=== PATIENT | male | born 1955 | race Caucasian/White ===

== ENCOUNTER → 2017-04-06 | Outpatient (CLI) | payer BC, OTHER ==
[~2017-04-06] VITALS: Ht 172.7 cm; Wt 93.0 kg
[~2017-04-06] MED LIST: AMBIEN 5 MG TABL5 M1 PO; ASPIR 8181 MG PO; BENAZEPRIL HCL10 MG PO; COENZYME Q10100 MG PO; FLOVENT HFA 4444 MCG INH; LIPITOR80 MG PO; OMEGA-31000 M1 PO; UNICOMPLEX M TA1 TA1 PO; VENTOLIN HFA 1818 GM INH; ZETIA10 MG PO
--- NOTE | ~2017-04-06 | CATHLAB ---
[facility] [address] [place] [address] INVASIVE PROCEDURE REPORT Name: JASON VILLAFUERTE ADRIANA [facility] [id number] Admission: 04/06/17 Attend Phys: Wellington Osorio MD Discharge: Date of : 59 Date of Service: 04/06/17 1204 Report #: [id number] THIS REPORT FOR: //name// APPROVED REPORT Patient Details Patient Status: Out-Patient Room #: The patient is a 61 year-old male Event Personnel Wellington Osorio Terminal Computer Operator, Lonnie Bautista RN, Kandi Diehl RN RN, Ksenia Yao Sandifer, David Monitor Procedures Performed Art Access - R femoral artery* Left Heart Cath w/or w/o Coronaries [id number] [facility] [address] Initial Mod Sed Same Phys/QHP Gr5y [id number] Hemostasis with Manual pressure Indication Dyspnea, Positive stress test Risk Factors Hypercholesterolemia, Coronary Artery DiseaseHypertension Procedure Narrative The patient was brought electively to the Cardiac Catheterization Laboratory and was prepped and draped in a sterile manner. The Right Groin^ was infiltrated with 1% Lidocaine subcutaneous anesthesia. A PINNACLE 4FR Sheath #[id number] sheath was inserted into the RFA^. Coronary angiography was performed using coronary diagnostic catheters. The right coronary system was accessed and visualized with a JR 4 catheter. The left coronary system was accessed and visualized with a JL 4 catheter. The left ventricle was accessed and visualized with a Pigtail catheter. Left ventricular/Aortic Valve gradient assessed via catheter pullback. Left ventriculogram was performed in GARCIA projection. Hemostasis was obtained with manual pressure following sheath removal without any complications. The patient tolerated the procedure well and there were no complications associated with the procedure. There was no hematoma. Intraoperative Conscious Sedation Sedation start time: 08:05 Case end Time: 08:23 Fentanyl 25.0 mcg Versed 1.5 mg [address] [address] [place] [address] INVASIVE PROCEDURE REPORT Name: JASON VILLAFUERTE Room #: REG [facility]#: [id number] Admission: 04/06/17 Attend Phys: Wellington Osorio MD Discharge: Date of : 59 Date of Service: 04/06/17 1204 Report #: [id number] Fluoro Time: 2.58 minutes Dose: 601 mGy Contrast Type and Amount: Omnipaque 135 ml Coronary Angiography The patient's coronary anatomy is right dominant. Diagnostic Cath Left Main Patent vessel, with no flow-limiting lesions. LAD Patent vessel, with mild disease in the proximal segment, 30%. Diagonal 1 Patent vessel, with no flow-limiting lesions. Circumflex Patent vessel, with minimal plaquing in the proximal segment. OM1 Patent vessel, with no flow-limiting lesions. OM2 Patent vessel, with no flow-limiting lesions. Right Coronary Dominant vessel, with mild diffuse disease in the proximal segment, 20%. R PDA Patent vessel, with no flow-limiting lesions. Left Ventriculography The left ventricle is normal in size with normal contractility. The left ventricular ejection fraction is estimated to be 50-55%. Hemodynamics The aortic pressure is 121/82 mmHg with a mean of 93 mmHg. The left ventricular pressure is 121/5 mmHg with a mean of mmHg. The left ventricular end diastolic pressure is 21 mmHg. Conclusion 1. Mild, nonobstructive CAD in LAD and RCA. 2. Normal LV systolic function. 3. Recommend risk factor management. <ELECTRONICALLY SIGNED> By: Wellington Osorio MD 04/06/17 1204 03 120 Wellington Osorio MD /INF
--- NOTE | ~2017-04-06 | EKG ---
[address] [address] ELECTROCARDIOGRAM REPORT Name: JASON VILLAFUERTE [facility] [id number] Admission: 04/06/17 Attend Phys: Wellington Osorio MD Discharge: Date of : 59 Report #: [id number] THIS REPORT FOR: //name// [facility] Test Date: 2017-04-06 Test Time: 07:00:37 Pat Name: JASON VILLAFUERTE Department: Room: Gender: Internal Control Analyst: Triny MÉNDEZ : 1955 Requested By: Wellington Osorio Order Number: [id number] MD: Berto Wilson Measurements Intervals [place] Rate: 56 P: -16 NM: 146 QRS: 9 QRSD: 91 T: 16 QT: 409 QTc: 395 Interpretive Statements Sinus rhythm No significant abnormality No previous ECG available for comparison Electronically Signed On 04-06-2017 8:27:42 LENS CEMENTER by Berto Wilson [email or web address] <ELECTRONICALLY SIGNED> By: Berto Wilson MD, [facility] 04/06/17 0827 0700 9 Berto Wilson MD, FAC /EPI
[2017-04-06 07:20] VITALS: BP 121/74
[2017-04-06 07:22] LABS: HEMATOCRIT 45.2 % (42.0-52.0); HEMOGLOBIN 15.6 gm/dL (14.0-18.0); MCH 31.8 pg (26.0-34.0); MCHC 34.5 g/dL (28.0-37.0); MCV 92.1 fL (80.0-100.0); RBC 4.91 mil/uL (4.50-6.00); RDW 13.6 % (10.5-14.5); WBC 4.9 thou/uL (4.0-11.0)
[2017-04-06 07:32] LABS: CALCIUM 9.2 mg/dL (8.5-10.1); CREATININE 1.2 mg/dL (0.7-1.3); POTASSIUM 4.1 mmol/L (3.5-5.1)
== END | disposition home or self-care (01) ==
LOC: CATH 06:35
PROVIDERS: Internal Medicine Cardiovascular Disease
DX: I25.10 Atherosclerotic heart disease of native coronary artery without angina pectoris (principal); E78.00 Pure hypercholesterolemia, unspecified; I10 Essential (primary) hypertension; Z87.891 Personal history of nicotine dependence; R00.1 Bradycardia, unspecified; I77.9 Disorder of arteries and arterioles, unspecified; K21.9 Gastro-esophageal reflux disease without esophagitis; Z85.46 Personal history of malignant neoplasm of prostate; Z98.890 Other specified postprocedural states; Z82.49 Family history of ischemic heart disease and other diseases of the circulatory system

== ENCOUNTER → 2021-04-05 | Outpatient (CLI) | payer OTHER | LOC: SJCVCIMAG 07:18 | PROVIDERS: ATTEND Internal Medicine Cardiovascular Disease | DX: I10 Essential (primary) hypertension (principal); R00.0 Tachycardia, unspecified; I25.10 Atherosclerotic heart disease of native coronary artery without angina pectoris; Z87.891 Personal history of nicotine dependence; E78.00 Pure hypercholesterolemia, unspecified; Z79.84 Long term (current) use of oral hypoglycemic drugs ==